=== PATIENT | female | born 1945 | race Caucasian/White ===

== ENCOUNTER → 2016-12-30 | Outpatient (CLI) | payer OTHER ==
[~2016-12-30] MED LIST: ASPIRIN81 M1 PO; AZOR 5/40 MG TA1 TAB PO; COREG12.5 MG PO; FUROSEMIDE40 MG PO; HYDROCODON-ACE1 EACH PO; K-LOR20 MEQ PO; LEVEMIR100 U/ML; LIPITOR PO; MULTAQ400 MG PO; NEURONTIN600 MG PO; NOVOLOG100 U/M3 SUBQ; PRADAXA150 MG PO; PREMARIN0.3 MG PO; STOOL SOFTENER100 M1 PO; TOFRANIL25 MG PO; VESICARE5 MG PO; VIT B PO; VIT B12 PO; [UNRECOGNIZED DRUG - OTHER] PO
--- NOTE | ~2016-12-30 | CR63 ---
[facility] A Service of [facility] & [facility] RADIOLOGY TEXT RESULTS PATIENT: JAYA CHACON LOCATION: [facility] : 49 UNIT #: [id number] AGE: [address]: Felipe Castro MD SEX: F ORDER DR: [id number] [facility] [address] [place], [place] [address] [id number] O MR#: [id number] Acc #: [id number] NAME: JAYA CHACON : 1945 SEX: F STUDY DATE/TIME: 12/30/2016 12:42 UNIT: [facility] ROOM: STUDY DESCRIPTION: CR Chest 2 View Attending Physician: Felipe Castro M.D. Referring Physician: Felipe Castro M.D. Ordering Physician: Felipe Castro M.D. Primary Care Physician: Massimo Urbano M.D. MEDICAL IMAGING REPORT This report is preliminary unless electronic signature is present EXAM Chest 12/30/2016 HISTORY 71-year-old female patient. History of left kidney cancer. Patient short of air past 2 weeks. Known high blood pressure. COMPARISON Chest 12/21/2015. FINDINGS Two-view chest demonstrates normal stable heart size. Hilar structures and mediastinal contours are preserved. Lungs are expanded and clear with no pulmonary nodules or infiltrates. Costophrenic angles are preserved. Previously noted right arm approach PICC line no longer present. IMPRESSION Negative chest. No evidence for acute finding or metastatic disease. Dictated by... Mehul Mathur M.D. THIS IS AN ELECTRONICALLY VERIFIED REPORT Mehul Mathur M.D. at 12/31/2016 3:01 PM THELMA/tanisha TD: 12/30/2016 20:30 JOB #: [id number] MEDICAL IMAGING REPORT Page 1 of 1 COPY
[2016-12-30 12:46] LABS: HEMATOCRIT 38.9 % (35.0-45.0); HEMOGLOBIN 12.7 gm/dL (12.0-16.0); MEAN CELL VOLUME 83.3 FL (83-96); MEAN CORPUSCULAR HEMOGLOBIN 27.1 PG (28-34); MEAN CORPUSCULAR HGB CONC 32.5 g/dL (30-36); MEAN PLATELET VOLUME 7.3 FL (6.5-11.5); RED BLOOD COUNT 4.67 X10e (3.90-5.30); RED CELL DISTRIBUTION WIDTH 13.6 % (11.0-15.5); WHITE BLOOD COUNT 11.9 X10e3 (4.0-10.5)
[2016-12-30 13:20] LABS: ALBUMIN SERUM 3.3 g/dL (3.5-5.0); BILIRUBIN,TOTAL 0.2 mg/dL (0.2-2.0); BUN/CREATININE RATIO 18.75; CALCIUM SERUM 8.7 mg/dL (8.4-10.2); CREATININE SERUM 0.8 mg/dL (0.6-1.4); GLOM FILT RATE Estimated 75.3 mL/min (>60); PROTEIN TOTAL SERUM 7.1 g/dL (6.0-8.3)
== END | disposition home or self-care (01) ==
LOC: CLAB 12:04
PROVIDERS: Urology
DX: C65.1 Malignant neoplasm of right renal pelvis (principal)
CPT/HCPCS: 36415; 71020; 80053; 85027